=== PATIENT | female | born 1980 | race Caucasian/White ===

== ENCOUNTER 2020-09-18 17:28 | Emergency (ER) | payer BC, SELFPAY ==
[2020-09-18 17:35] VITALS: BP 124/68; PULSE 99; RESP 19; TEMP 36.6; O2SAT 100; BMI 37.8
--- NOTE | 2020-09-18 18:12 | HMH.EDUTC ---
[facility] [place] Disposition Clinical Impression: Migraine Qualifiers: Migraine type: unspecified Status migrainosus presence: without status migrainosus Intractability: not intractable Qualified Code(s): G43.909 - Migraine, unspecified, not intractable, without status migrainosus Disposition: Home, Self-Care Condition on Discharge: Good Instructions: Migraine -- Adult Additional Instructions: Go home and lay down and try to sleep off remainder of Migraine Headache Return if needed Follow up with Family Doctor for daily medications to help with Migraine Straight to ER if any life threatening symptoms You were tested for today for COVID19 your test result should be back in the next 24-48 hours, you may call to the [facility] to see if your test results are back in the next 48 hours [phone] [facility] hours are 9am-9pm You was given a handout with instructions for Self Quarantine and Self isolation for while you wait on test results and what to do if they are positive If you are positive the Health Dept will be contacting you also Make sure to take your Vitamins Vit. C Vit D and Zinc if you can take them Referrals: Provider,Referral, MD [Primary Care Provider] - As needed Time of Disposition: 18:46 Medical Decision Making - Hussein Inquiry Pt receiving controlled substance: No Hussein was queried for this patient: No Vital Signs: 09/18/20 17:35 09/18/20 18:30 Temperature 97.8 F 97.8 F Temperature Source Oral Pulse Rate 99 H Pulse Rate [Right Brachial] 99 H Respiratory Rate 19 19 Blood Pressure 124/68 Blood Pressure [Right Arm] 124/68 Blood Pressure Mean [Right Arm] 86 Blood Pressure Source [Right Arm] Automatic Cuff Blood Pressure Position [Right Arm] Sitting 02 Sat by Pulse Oximetry 100 Oxygen Delivery Method Room Air Orders (Tests/Meds): ED MEDICATIONS Discontinued Medications Generic Name Dose Route Start Last Admin Trade Name Freq PRN Reason Stop Dose Admin Diphenhydramine HCl 25 mg 09/18/20 18:20 09/18/20 18:30 Diphenhydramine 50mg/Ml Vial IM 09/18/20 18:21 25 mg ONCE ONE Administration Ketorolac Tromethamine 60 mg 09/18/20 18:20 09/18/20 18:30 Ketorolac 60mg/2ml Vial IM 09/18/20 18:21 60 mg ONCE ONE Administration Ondansetron HCl 4 mg 09/18/20 18:20 09/18/20 18:27 Ondansetron 4mg Odt SL 09/18/20 18:21 4 mg ONCE ONE Administration ORDERS Category Date Time Status Covid-19 Nasal PCR ([facility]) Routine Lab 09/18/20 18:15 Ordered Medical Decision Narrative: Patient reports had a tubal and that she has taken Toradol benadryl and reglan in the past without complications or reactions Patient states that migraine is much better now Patient to be dc home [facility] [place] HPI - General Stated complaint: [place] Time Seen by Provider: 09/18/20 18:12 Mode of Arrival: Ambulatory Source of Information: Patient Limitations: No Limitations Description of Symptoms (Recalled from Triage Doc. by RN): PATIENT C/O MIGRAINE AND NECK PAIN X 1 WEEK HEENT Symptoms (Recalled from RN notes): Yes Resp Symptoms (Recalled from RN notes): No Skin Symptoms (Recalled from RN notes): No MS Symptoms (Recalled from RN notes): No Functional Status (Recalled from RN notes): WNL - History of Present Illness Provider Complaint: Patient states that she has a history of Migraine headaches and has to come in sometimes and get shots for them States that she has been having this migraine for about a week and it is like others she has had in the past States that she has been having some muscle spasm like pain in her neck too like she has had in the past and may have caused her Migraine to start Denies worse headache of her life also wants to get tested for COVID - Related Data Allergies Allergy/AdvReac Type Severity Reaction Status Date / Time From TRAMADOL HCL Allergy Unknown Uncoded 01/24/17 14:40 MORPHINE Allergy Unknown PANIC Uncoded 01/24/17 14:40 ATTACK PENICILLIN Allergy Unknown Uncoded 01/24/17 14:40
[2020-09-18 18:30] VITALS: BP 124/68; PULSE 99; RESP 19; TEMP 36.6; O2SAT 100
--- NOTE | 2020-09-21 11:18 | PC.NURSE ---
pt notified of positive covid results
== END 2020-09-18 18:54 | disposition home or self-care (01) ==
PROVIDERS: Emergency Provider Nurse Practitioner
DX: G43.909 Migraine, unspecified, not intractable, without status migrainosus (principal)
CPT/HCPCS: 96372; 99202; G0463; U0003

== ENCOUNTER 2024-12-09 23:28 | Emergency (ER) | payer SELFPAY ==
--- OUTSIDE RECORDS SUMMARY | 2024-12-09 23:34 | XMS_ITS | Clinical Summary ---
Author Organization [facility] are Address [address] [place] [id number] Phone Care Team Providers Care Platen Grinder Name Role Phone Unavailable Unavailable Conditions or Problems No information available. Medications No information available. Medications Administered No information available. Allergies, Adverse Reactions, Alerts No information available. Results No information available. Plan of Care No information available. Procedures No information available. Vital Signs No information available. Immunizations No information available. Advance Directives No information available.
[2024-12-09 23:35] VITALS: BP 145/93; PULSE 98; RESP 16; TEMP 36.9; O2SAT 100; BMI 32.5
[2024-12-09 23:59] LABS: Coronavirus 19, PCR Not Detected (NotDetected); Influenza A, PCR Not Detected (NotDetected); Influenza B, PCR Not Detected (NotDetected)
[2024-12-10 00:08] LABS: Strep Scrn Group A (Rapid) Negative (Negative)
[2024-12-10 00:30] VITALS: BP 140/94; PULSE 76; O2SAT 100
[2024-12-10 00:46] VITALS: PULSE 78; O2SAT 100
--- NOTE | 2024-12-10 00:48 | ED_ITS ---
Discharge Plan Disposition Patient Disposition: Home, Self-Care Condition: Good Prescriptions Prescriptions: New cefdinir 300 mg capsule 300 mg PO BID 10 Days Qty: 20 0RF ondansetron 4 mg tablet,disintegrating 4 mg PO Q6H PRN (Reason: nausea and vomiting) Qty: 10 0RF Referrals Follow up/Referrals: Provider,Referral, [Primary Care Provider, Medical] - See instructions Activity Restrictions/Add. Instructions Additional Instructions/Restrictions: You were evaluated in the ER and are believed to be appropriate for discharge at this time. Take the prescribed antibiotics (cefdinir) as directed. Do not skip doses, do not stop taking it early. Take the prescribed Zofran (ondansetron) if needed for nausea and vomiting. Drink plenty of fluids including water, Gatorade, Pedialyte to stay hydrated. Take Tylenol or ibuprofen if needed for headache, do not exceed the recommended dose on the bottle. Drink water and eat a small snack each time you take these medications to avoid side effects. Make an appointment with your primary care doctor for reevaluation in 2 to 3 days. Return to the ER with any new, worsening, or otherwise concerning symptoms. Clinical Impressions Clinical Impression: Acute left otitis media, Headache Stand Alone Forms Stand Alone Forms: Work/School Release Print Language Print Language: Sammarinese Discharge ED Provider: Rad Reynolds General Adult HPI General Chief complaint: Ear Stated complaint: L Ear Pain; L pain when Swallowing; Dizzy Time Seen by Provider: 12/10/24 00:43 Mode of Arrival: Ambulatory Source of Information: Patient Description of Symptoms (Recalled from ER Triage Doc. by RN): Pt presents for evaluation of bilateral ear pain, headache, painful swallowing x3 days. Pt reports associated fever at home but does not have a thermometer to check temp. 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 Denies Flu vaccinations for this year. History of Present Illness HPI narrative: 44-year-old female presents to the ER complaining of ear pain, sore throat, headache, nausea. Patient reports fever at home but was 98.4 degrees on arrival. Patient reports likely being exposed to illness because she works with the public. She states oral intake is somewhat decreased. She denies vomiting or diarrhea. No dysuria or hematuria. LMP 1 week ago, history of tubal. No medications prior to arrival. Denies cough or congestion, no difficulty breathing, no chest pain, no abdominal pain, no other associated symptoms. Reports headache was not thunderclap in onset, not maximal intensity at onset. She denies dizziness to me but states I just do not feel well Related Data Previous Rx's ?Medication ?Instructions ?Recorded cefdinir 300 mg capsule 300 mg PO BID 10 days #20 ca ps 12/10/24 ondansetron 4 mg disintegrating 4 mg PO Q6H PRN nausea and 12/10/24 tablet vomiting #10 tabs Allergies Allergy/AdvReac Type Severity Reaction Status Date / Time From TRAMADOL HCL Allergy Unknown Uncoded 01/24/17 14:40 MORPHINE Allergy Unknown PANIC Uncoded 01/24/17 14:40 ATTACK PENICILLIN Allergy Unknown Uncoded 01/24/17 14:40 PFSH PFSH Disclaimer: The information contained in this section may have been updated after the patient was seen, as this information can be updated by other users. Social History Smoking Status: Never smoker alcohol intake: never current occupational status: employed Travel in the last 8 weeks?: None ROS Obtained: Yes Systems reviewed as appropriate & no additional complaints except as documented per HPI Physical Exam General General appearance: alert and in no apparent distress Head Head exam: atraumatic and normocephalic Eye Eye exam: Present PERRL and EOMI; Absent scleral icterus or conjunctival redness ENT ENT exam: Present mucous membranes moist and other (Mildly erythematous posterior oropharynx but no tonsillomegaly or exudate, no peritonsillar mass, normal voice); Absent TM's normal bilaterally (Right TM normal, left TM bulging with purulent effusion, erythematous) Neck Neck exam: Present normal inspection and full ROM; Absent tenderness or lymphadenopathy Chest Chest inspection: Present symmetric chest wall rise; Absent tenderness Respiratory Respiratory exam: Present normal lung sounds bilaterally; Absent respiratory distress, wheezes or stridor Cardiovascular Cardiovascular exam: Present regular rate and normal rhythm Abdominal Exam Abdominal exam: Present soft; Absent distention, tenderness, guarding or rebound Extremities Exam Extremities exam: Present full ROM; Absent edema Neurological Exam Neurological exam: Present alert and oriented X3; Absent motor sensory deficit Psychiatric Psychiatric exam: Present normal affect and normal mood Skin Skin exam: Present warm and dry Medical Decision Making Medical Records Medical records reviewed: Yes I reviewed the patient's medical records. Screening: Per USPSTF and CDC recommendations, given the prevalence of disease in our region, it is our hospital?s policy to screen for HIV and viral Hepatitis for all patients aged 18 and over and those with ongoing risk factors. Hussein Inquiry Pt receiving controlled substance: No Vital Signs: 12/09/24 23:35 12/10/24 00:30 12/10/24 00:46 Temperature 98.4 F Temperature Source Oral Pulse Rate 76 78 Pulse Rate [Radial] 98 H Respiratory Rate 16 Blood Pressure 140/94 H Blood Pressure [Right Arm] 145/93 H Blood Pressure Mean Blood Pressure Mean [Right Arm] 110 Blood Pressure Position [Right Arm] Sitting 02 Sat by Pulse Oximetry 100 100 100 Oxygen Delivery Method Room Air Room Air 12/10/24 01:01 12/10/24 01:35 Temperature 98.7 F Temperature Source Pulse Rate 77 Pulse Rate [Radial] Respiratory Rate 20 Blood Pressure 134/65 126/77 Blood Pressure [Right Arm] Blood Pressure Mean 88 Blood Pressure Mean [Right Arm] Blood Pressure Position [Right Arm] 02 Sat by Pulse Oximetry Oxygen Delivery Method Room Air Lab Data Lab Results 12/09/24 23:47: SARS-CoV-2 (PCR) Not detected, Influenza A Untype (PCR) Not detected, Influenza Type B (PCR) Not detected, Group A Strep Rapid Negative Orders (Tests/Meds): ED MEDICATIONS Discontinued Medications Generic Name Dose Route Start Last Admin Trade Name Freq PRN Reason Stop Dose Admin Acetaminophen 1,000 mg 12/10/24 00:46 12/10/24 00:58 Acetaminophen 500mg Tab PO 12/10/24 00:47 1,000 mg ONCE ONE Administration Cefdinir 300 mg 12/10/24 00:47 12/10/24 00:58 Cefdinir 300mg Capsule PO 12/10/24 00:48 300 mg ONCE ONE Administration Ketorolac Tromethamine 30 mg 12/10/24 00:46 12/10/24 00:58 Ketorolac 30mg/Ml Vial IM 12/10/24 00:47 30 mg ONCE ONE Administration Prochlorperazine Maleate 10 mg 12/10/24 00:46 12/10/24 00:58 Prochlorperazine 10mg Tablet PO 12/10/24 00:47 10 mg ONCE ONE Administration ORDERS Category Date Time Status Rapid PCR Covid and Flu A/B Stat Lab 12/09/24 23:47 Completed Strep Scrn Group A (Rapid) Stat Lab 12/09/24 23:47 Completed Strep Screen Confirmation Stat Micro 12/09/24 23:47 Received Medical Decision Narrative: In summary, this 44-year-old female presents to the emergency department today with sore throat, ear pain, headache, nausea but no vomiting. On initial evaluation patient is hemodynamically stable, afebrile, GCS 15, no neurologic deficits, PERRLA and EOMI, posterior oropharynx mildly erythematous but no tonsillomegaly or exudates, no peritonsillar mass, no lymphadenopathy, cardiopulmonary exam benign, left TM with bulging, purulent effusion. Differential diagnosis includes but is not limited to viral syndrome including but not limited to COVID, influenza, consider the possibility of strep throat, also considered otitis media which does appear to be present. Regarding her headache I suspect either viral related headache or tension headache. I do not suspect intracranial bleed, mass, or other more dangerous pathology given patient's history. Based on these concerns, I ordered viral swab, strep swab. Patient received Toradol, Tylenol, Compazine for treatment. For her otitis media she is receiving cefdinir since she has a history of allergy to penicillin. Labs personally reviewed demonstrate negative for COVID and flu, strep negative. I do not believe radiographic workup is indicated at this time. On reassessment patient has had significant improvement of symptoms and is tolerating oral intake. I believe she is appropriate for discharge at this time. Cefdinir and Zofran prescribed for outpatient management. Patient was given instructions on symptomatic management, follow up instructions, and return precautions for the emergency department. Patient indicated understanding and was discharged in stable condition. Critical Care Critical Care Time Critical Care Time: No
[2024-12-10] MEDS: CEFDINIR 300MG CAPSULE 300 MG PO (00:58)
[2024-12-10] MEDS: KETOROLAC 30MG/ML VIAL 30 MG IM (00:58)
[2024-12-10] MEDS: PROCHLORPERAZINE 10MG TABLET 10 MG PO (00:58)
[2024-12-10] MEDS: ACETAMINOPHEN 500MG TAB 1000 MG PO (00:58)
[2024-12-10 01:01] VITALS: BP 134/65
[2024-12-10 01:35] VITALS: BP 126/77; PULSE 77; RESP 20; TEMP 37.1; O2SAT 98
== END 2024-12-10 01:38 | disposition home or self-care (01) ==
PROVIDERS: Emergency Provider Emergency Medicine
DX: R51.9 Headache, unspecified (principal); H66.92 Otitis media, unspecified, left ear; R11.0 Nausea
CPT/HCPCS: 87430; 87636; 96372; 99283; 99285; J1885; Q0164